=== PATIENT | female | born 1950 ===

== ENCOUNTER 2023-02-21 07:00 | Inpatient (IN) | payer OTHER ==
[~2023-02-21] VITALS: Ht 160 cm; Wt 90.7 kg
[~2023-02-21 07:00] MED LIST: CLONAZEPAM0.5 M1 PO; EFFEXOR XR150 MG PO; HYZAAR 50-12.51 EACH PO; INTEGRA PLUS C1 EACH PO; LIPITOR20 MG PO; OXYC1TAB9 PO; XARELTO10 MG PO; [UNRECOGNIZED DRUG - OTHER] PO
[2023-02-21] MEDS ORDERED: ZETIA10 MG PO (12:40)
[2023-02-21] MEDS ORDERED: RESTORIL15 M1 PO (12:40)
[2023-02-21] MEDS ORDERED: FARXIGA5 MG PO (12:41)
[2023-02-21] MEDS ORDERED: [UNRECOGNIZED DRUG - OTHER] (12:42)
[2023-02-25] MEDS ORDERED: LATANOPROST2.5 ML (11:04)
[2023-02-25] MEDS ORDERED: TIZANIDINE HCL4 MG (11:04)
[2023-02-25] MEDS ORDERED: EXEMESTANE25 MG (11:04)
[2023-02-25] MEDS ORDERED: ATORVASTATIN CA10 MG (11:04)
[2023-02-25] MEDS ORDERED: MYRBETRIQ25 MG (11:04)
[2023-02-25] MEDS ORDERED: RESTORIL15 MG (11:04)
[2023-02-25] MEDS ORDERED: LOSARTAN POTAS100 MG (11:04)
[2023-02-25] MEDS ORDERED: ANASTROZOLE1 MG (11:07)
[2023-02-27] MEDS ORDERED: OXYC1TAB9 PO (06:42)
[2023-02-27] MEDS ORDERED: INTEGRA PLUS C1 EACH PO (06:42)
[2023-02-27] MEDS ORDERED: XARELTO10 MG PO (06:42)
[2023-02-27] MEDS ORDERED: BACTRIM DS TAB1 EACH PO (06:42)
== END 2023-02-27 14:53 | DRG 470 ==
LOC: O/R 02-25 06:28 → SURH 02-25 07:00
PROVIDERS: ADMIT Orthopaedic Surgery Sports Medicine; ATTEND Orthopaedic Surgery Sports Medicine
PROC: 0SRB0JZ Replacement of Left Hip Joint with Synthetic Substitute, Open Approach (ICD-10-PCS; principal; 2023-02-25 11:45)
DX: M16.12 Unilateral primary osteoarthritis, left hip (principal); I10 Essential (primary) hypertension; E11.9 Type 2 diabetes mellitus without complications